=== PATIENT | female | born 1960 | race African-American/Black ===

== ENCOUNTER 2019-12-31 09:32 | Inpatient (IN) | payer MEDICAID, OTHER ==
[~2019-12-31] VITALS: Ht 175.3 cm; Wt 108.7 kg
[~2019-12-31 09:32] MED LIST: AMLO5TAB9 PO
[2019-12-31 10:21] LABS: EOSINOPHILS % (AUTO) 0.9 % (1.0-6.0); HEMATOCRIT 35.3 % (36-46); HEMOGLOBIN 11.7 g/dL (12.0-16.0); LYMPHOCYTES # (AUTO) 2.1 K/uL (1.0-4.8); LYMPHOCYTES % (AUTO) 35.5 % (22.0-44.0); MEAN CORPUSCULAR HEMOGLOBIN 28.3 pg (26.0-34.0); MEAN CORPUSCULAR HGB CONC 33.2 G/dL (31.0-37.0); MEAN CORPUSCULAR VOLUME 85 fL (80-100); MONOCYTES # (AUTO) 0.2 K/uL (0.1-1.0); MONOCYTES % (AUTO) 3.4 % (2.0-9.0); NEUTROPHILS # (AUTO) 3.5 K/uL (1.8-7.7); NEUTROPHILS % (AUTO) 59.2 % (40.0-70.0); PLATELET COUNT (AUTO) 312 K/uL (150-450); RED BLOOD CELL COUNT(AUTO) 4.14 MIL/uL (4.00-5.20)
[2019-12-31 10:34] LABS: PROTHROMBIN TIME 10.5 SEC (9.4-11.6)
[2019-12-31 10:35] LABS: ANION GAP 7 mmol/L (8-16); CALCIUM, TOTAL 9.4 mg/dL (8.8-10.5); CARBON DIOXIDE 32 mmol/L (22-29); CHLORIDE 104 mmol/L (98-107); CREATININE 0.63 mg/dL (0.60-1.30); GLOMERULAR FILTR. RATE CALC > 60 mL/min (>60); GLUCOSE,RANDOM 128 mg/dL (70-110); POTASSIUM 3.7 mmol/L (3.5-5.1); SODIUM SERUM 143 mmol/L (136-145); UREA NITROGEN, BLOOD 14 mg/dL (7-18)
[2019-12-31] MEDS: ONDANSETRON HCL 4 MG/2 ML VIAL IVP ONE ×2 (10:35→11:17)
[2019-12-31 10:38] LABS: ALANINE AMINOTRANSFERASE 29 U/L (12-78); ALBUMIN 3.8 g/dL (3.4-5.0); ALKALINE PHOSPHATASE 116 U/L (46-116); ASPARTATE AMINOTRANSFERASE 21 U/L (15-37); BILIRUBIN,TOTAL 0.4 mg/dL (0.1-1.0); TOTAL PROTEIN, SERUM 7.3 g/dL (6.4-8.2)
[2019-12-31 10:41] LABS: LACTIC ACID 0.8 mmol/L (0.4-2.0)
[2019-12-31] MEDS ORDERED: DiphenhydrAMINE HCL 50 MG/ML VIAL IVP ONE (11:00)
[2019-12-31] MEDS ORDERED: MORPHINE SULFATE 4 MG/ML SYRINGE IVP ONE (11:00)
[2019-12-31] MEDS ORDERED: ASPIRIN 81 MG CHEWABLE TABLET PO ONE ×2 (11:15→20:30)
[2019-12-31] MEDS ORDERED: SODIUM CHLORIDE 0.9% 100 ML ONE (11:49)
[2019-12-31] MEDS ORDERED: IOVERSOL 320 MG/ML 100 ML VIAL ONE (11:49)
[2019-12-31 14:50] VITALS: BP 163/73
[2019-12-31] MEDS ORDERED: INFLUENZA VIRUS VACCINE QVS 2019-20 (3YR+)/PF 60 MCG/0.5 ML SYRINGE IM ONE (16:00)
[2019-12-31] MEDS ORDERED: PNEUMOCOCCAL VACCINE POLYVALENT 0.5 ML VIAL [PPSV23] IM ONE (16:00)
[2019-12-31] MEDS ORDERED: HYDROCODONE/ACETAMINOPHEN 5-325 MG TABLET PO PRN (16:30)
[2019-12-31] MEDS: ONDANSETRON HCL 4 MG/2 ML VIAL IVP PRN (18:09)
[2019-12-31 18:37] LABS: HEMOGLOBIN A1C 5.4 % (4.5-6.2)
[2019-12-31 18:45] LABS: CHOL/HDL RATIO 5.4 (3.9-5.7); CHOLESTEROL 244 mg/dL (131-200); HDL CHOLESTEROL 45 mg/dL (40-60); LDL CHOL (CALC.) 158 mg/dL (0-130); THYROID STIMULATING HORMONE 4.57 uIU/mL (0.36-3.74); TRIGLYCERIDES 205 mg/dL (15-150)
[2019-12-31 19:50] VITALS: BP 161/77
[2019-12-31] MEDS ORDERED: ONDANSETRON HCL 4 MG/2 ML VIAL IVP PRN (20:30)
[2019-12-31] MEDS ORDERED: MAGNESIUM HYDROXIDE SUSPENSION 30 ML UDCUP PO PRN (20:30)
[2019-12-31] MEDS ORDERED: ZOLPIDEM TARTRATE 5 MG TABLET PO PRN (20:30)
[2019-12-31] MEDS ORDERED: BISACODYL 10 MG RECTAL RECTAL SUPPOSITORY PR PRN (20:30)
[2019-12-31] MEDS ORDERED: AMLO2.5T4 PO (20:35)
[2019-12-31] MEDS ORDERED: ATORVASTATIN CALCIUM 20 MG TABLET PO SCH (21:00)
[2019-12-31] MEDS: DOCUSATE SODIUM 100 MG CAPSULE PO SCH (21:37)
[2019-12-31] MEDS: ACETAMINOPHEN 325 MG TABLET PO PRN (21:37)
[2019-12-31 23:38] VITALS: BP 132/72
[2020-01-01] MEDS ORDERED: HYDROCODONE/ACETAMINOPHEN 5-325 MG TABLET PO PRN (00:30)
[2020-01-01 04:34] VITALS: BP 139/67
[2020-01-01] MEDS: ACETAMINOPHEN 325 MG TABLET PO PRN (07:39)
[2020-01-01 07:47] LABS: CHOL/HDL RATIO 5.7 (3.9-5.7); THYROID STIMULATING HORMONE 5.91 uIU/mL (0.36-3.74)
[2020-01-01 08:00] VITALS: BP 144/79
[2020-01-01] MEDS: DOCUSATE SODIUM 100 MG CAPSULE PO SCH (08:14)
[2020-01-01] MEDS ORDERED: ASPIRIN 325 MG TABLET PO SCH (09:00)
[2020-01-01] MEDS ORDERED: AmLODIPine BESYLATE 2.5 MG TABLET PO SCH (09:00)
[2020-01-01] MEDS ORDERED: PANTOPRAZOLE SODIUM 40 MG DR TABLET PO SCH (09:00)
[2020-01-01] MEDS: ONDANSETRON HCL 4 MG/2 ML VIAL IVP PRN (10:06)
[2020-01-01] MEDS ORDERED: IOVERSOL 350 MG/ML 100 ML VIAL ONE (10:16)
[2020-01-01] MEDS ORDERED: SODIUM CHLORIDE 0.9% 100 ML ONE (10:16)
[2020-01-01] MEDS ORDERED: MECLIZINE HCL 25 MG TABLET PO PRN (10:45)
[2020-01-01 14:08] VITALS: BP 152/69
[2020-01-01] MEDS ORDERED: MECL25TA31 PO (15:46)
[2020-01-01] MEDS ORDERED: ASPI-728 PO ×2 (15:47→15:48)
[2020-01-01] MEDS ORDERED: MECL-183 PO (15:49)
[2020-01-01] MEDS ORDERED: ASPI-629 PO (15:49)
[2020-01-01] MEDS ORDERED: ATOR20TA86 PO (15:54)
[2020-01-01 16:21] VITALS: BP 149/73
== END 2020-01-01 18:20 | disposition home health service (06) | DRG 45 ==
LOC: EMS 09:32 → 5N 14:11
PROVIDERS: ADMIT Internal Medicine; ATTEND Internal Medicine
PROC: 3E02340 Introduction of Influenza Vaccine into Muscle, Percutaneous Approach (ICD-10-PCS; principal; 2020-01-01)
PROC: 3E0234Z Introduction of Serum, Toxoid and Vaccine into Muscle, Percutaneous Approach (ICD-10-PCS; 2020-01-01)
DX: I63.9 Cerebral infarction, unspecified (principal); I10 Essential (primary) hypertension; K21.9 Gastro-esophageal reflux disease without esophagitis; Z79.82 Long term (current) use of aspirin; Z88.5 Allergy status to narcotic agent; Z88.6 Allergy status to analgesic agent; Z79.899 Other long term (current) drug therapy; Z23 Encounter for immunization
CPT/HCPCS: 70450; 70460; 70496; 70498; 82607; 83036; 83605; 84443; 87040; 90686; 90732; 92610; 93005; 93306; 93880; 97116; 97162; 99291; J1200; J2270; J2405; J7050